=== PATIENT | female | born 1980 | race Caucasian/White ===

== ENCOUNTER 2017-07-27 22:34 | Emergency (ER) | payer OTHER ==
[~2017-07-27] VITALS: Ht 154.9 cm; Wt 74.8 kg
[~2017-07-27 22:34] MED LIST: BIRTH CONTROL1 EACH PO; PREDNISONE20 MG PO
[2017-07-28] MEDS ORDERED: ATARAX,VISTARIL50 MG PO (00:32)
[2017-07-29] MEDS ORDERED: PREDNISONE10 MG PO (14:24)
== END 2017-07-28 00:35 | disposition home or self-care (01) ==
LOC: ED 22:34
DX: L50.8 Other urticaria (principal); T37.0X5A Adverse effect of sulfonamides, initial encounter; Z88.1 Allergy status to other antibiotic agents; Z88.8 Allergy status to other drugs, medicaments and biological substances; Z79.899 Other long term (current) drug therapy; Y92.9 Unspecified place or not applicable

== ENCOUNTER 2017-07-29 10:04 | Emergency (ER) | payer OTHER ==
[~2017-07-29] VITALS: Ht 154.9 cm; Wt 74.8 kg
[~2017-07-29 10:04] MED LIST changes: +ATARAX,VISTARIL50 MG PO
[2017-07-29 10:32] LABS: BASO % 0.2 % (0.0-1.0); EOS % 0.1 % (1.0-4.0); HEMATOCRIT 41.8 % (37.0-47.0); HEMOGLOBIN 13.7 g/dl (12.0-16.0); LYMPH # 2.1 10*3/uL (1.3-4.4); LYMPH % 14.3 % (27.0-41.0); MEAN CELL VOLUME 88.6 fl (81.0-99.0); MEAN CORPUSCULAR HGB CONC 32.8 g/dl (33.0-37.0); MEAN PLATELET VOLUME 10.1 fl (9.6-12.3); MONO # 1.2 10*3/uL (0.1-1.0); MONO % 7.9 % (3.0-9.0); NEUT # 11.6 10*3/uL (2.3-7.9); NEUT % 77.2 % (47.0-73.0); PLATELET COUNT AUTOMATED 260 10*3/uL (130-400); RED BLOOD COUNT 4.72 10*6/uL (4.10-5.10); RED CELL DISTRI WIDTH 13.4 % (0-14.5)
[2017-07-29 10:47] LABS: ALBUMIN 3.5 gm/dl (3.1-4.5); ALKALINE PHOSPHATASE 56 U/L (45-117); BUN 14 mg/dl (7-24); CHLORIDE 105 mmol/L (98-107); CREATININE 0.72 mg/dL (0.55-1.02); POTASSIUM 3.8 mmol/L (3.5-5.1); SGOT/AST 15 IU/L (3-35); SGPT/ALT 18 U/L (12-78); SODIUM 139 mmol/L (136-145); TOTAL PROTEIN 7.4 gm/dL (6.4-8.2)
[2017-07-29 11:18] LABS: BILIRUBIN NEGATIVE (NEGATIVE); BLOOD 3+ (NEGATIVE); CLARITY SL CLOUDY (CLEAR); COLOR YELLOW (YELLOW); GLUCOSE NEGATIVE (NEGATIVE); KETONE NEGATIVE (NEGATIVE); LEUKO ESTERASE NEGATIVE (NEGATIVE); NITRITE NEGATIVE (NEGATIVE); SPECIFIC GRAVITY 1.025 (1.005-1.030); UROBILINOGEN 0.2 E.U./dl (0.2-1.0)
[2017-07-29 11:33] LABS: EPITHELIAL CELLS 25-30
[2017-07-29] MEDS ORDERED: PREDNISONE10 MG PO (14:24)
== END 2017-07-29 14:29 | disposition home or self-care (01) ==
LOC: ED 10:04
PROVIDERS: Registered Nurse
DX: D72.829 Elevated white blood cell count, unspecified (principal); E87.2 Acidosis; J02.9 Acute pharyngitis, unspecified; Z88.2 Allergy status to sulfonamides; Z88.8 Allergy status to other drugs, medicaments and biological substances; Z79.899 Other long term (current) drug therapy